=== PATIENT | female | born 1960 | race African-American/Black ===

== ENCOUNTER 2023-11-29 12:55 | Inpatient (IN) | payer MEDICAID, MEDICARE ==
[~2023-11-29] VITALS: Ht 167.6 cm; Wt 107.5 kg
[2023-11-29] VITALS (7 sets, daily range): BP systolic 140; BP diastolic 75; TEMP 99; O2SAT 95–100
[2023-11-29 13:22] LABS: ABG BASE EXCESS 4.1 mmol/L (-2.0-2.0); ABG OXYGEN SATURATION 48.8 % (92.0-98.5); ABG PCO2 47.5 mmHg (35.0-45.0); ABG PH 7.411 (7.350-7.450); ABG PO2 26.7 mmHg (75.0-100.0); ABG TOTAL HEMOGLOBIN 12.8 G/dL (12.0-16.0); COHb 0.3 % (0.5-1.5); MetHb 0.3 % (0.0-1.5); O2Hb 48.5 % (94.0-97.0); SITE, ABG Right Radial; VENT MODE, BG ROOM AIR
[2023-11-29 13:37] LABS: BASOPHILS % (AUTO) 0.4 % (0.0-2.0); CALCIUM, SERUM 9.1 mg/dL (8.5-10.1); CARBON DIOXIDE 33 mmol/L (21-32); CHLORIDE 102 mmol/L (98-107); CREATININE 1.1 mg/dL (0.6-1.3); EOSINOPHILS # (AUTO) 0.1 K/uL (0.0-0.7); EOSINOPHILS % (AUTO) 0.6 % (0.0-6.0); GLUCOSE 191 mg/dL (74-106); HEMATOCRIT 36 % (33-45); HEMOGLOBIN 11.5 g/dL (11.5-14.8); LYMPHOCYTES # (AUTO) 5.3 K/uL (0.8-4.8); MEAN CORPUSCULAR HEMOGLOBIN 25 PG (26.0-33.0); MEAN CORPUSCULAR HGB CONC 32 g/dl (31.0-36.0); MEAN CORPUSCULAR VOLUME 79 fL (82-100); MONOCYTES # (AUTO) 0.6 K/uL (0.1-1.30); MONOCYTES % (AUTO) 4.9 % (2.0-12.0); NEUTROPHILS # (AUTO) 5.6 K/uL (1.8-8.9); NEUTROPHILS % (AUTO) 48.1 % (43.0-81.0); PLATELET COUNT (AUTO) 253 K/uL (150-450); RED BLOOD CELL COUNT(AUTO) 4.57 MIL/uL (4.0-5.2); RED CELL DISTRIBUTION WIDTH 14.6 % (11.5-15.0); SODIUM SERUM 141 mmol/L (136-145); UREA NITROGEN, BLOOD 22 mg/dL (7-18); WHITE BLOOD COUNT (AUTO) 11.6 K/uL (4.3-11.0)
[2023-11-29 13:43] LABS: ALANINE AMINOTRANSFERASE 37 U/L (12-78); ALBUMIN 3.1 g/dL (3.4-5.0); ALKALINE PHOSPHATASE 64 U/L (46-116); ASPARTATE AMINOTRANSFERASE 11 U/L (15-37); BILIRUBIN,DIRECT 0.2 mg/dL (0.0-0.2); BILIRUBIN,TOTAL 0.6 mg/dL (0.2-1.0); TOTAL PROTEIN, SERUM 7.3 g/dL (6.4-8.2)
[2023-11-29 13:46] LABS: LACTIC ACID 2.3 mmol/L (0.4-2.0)
[2023-11-29] MEDS: CEFTRIAXONE 1GM BAG (ER ONLY) 50 ML IV ONE (15:15)
[2023-11-29] MEDS: methylPREDNISolone SOD SUCC 125 MG/2ML VIAL IV ONE (15:15)
[2023-11-29] MEDS: IV NS 0.9% 1,000 ML BAG IV ONE (15:15)
[2023-11-29] MEDS: IPRATROPIUM NEB FS 0.5 MG/2.5 ML AMPUL.NEB NEB ONE (15:22)
[2023-11-29] MEDS: ALBUTEROL FS 2.5 MG/3 ML VIAL.NEB NEB ONE (15:22)
[2023-11-29] MEDS: AZITHROMYCIN 500 MG in IV D5W 250 ML IV ONE (15:45)
[2023-11-29] MEDS: POTASSIUM CHLORIDE 20 MEQ TAB.PRT.SR PO ONE (17:10)
[2023-11-29] MEDS ORDERED: METF-441 PO (18:04)
[2023-11-29] MEDS ORDERED: GABA300C PO (18:04)
[2023-11-29] MEDS ORDERED: LISI10TA29 PO (18:04)
[2023-11-29] MEDS ORDERED: CYCL10TA9 PO (18:04)
[2023-11-29] MEDS ORDERED: ATOR40TA PO (18:04)
[2023-11-29] MEDS ORDERED: ESCI5TAB PO (18:04)
[2023-11-29] MEDS ORDERED: CHOL200059 PO (18:04)
[2023-11-29] MEDS ORDERED: SITA25TA PO (18:04)
[2023-11-29] MEDS ORDERED: IV NS 0.9% 1,000 ML IV PRN (18:30)
[2023-11-29] MEDS ORDERED: ONDANSETRON HCL/PF 4 MG/2 ML VIAL IVP PRN (18:30)
[2023-11-29] MEDS ORDERED: DEXTROSE 50%-WATER 50 ML DISP.SYRIN IV PRN (20:00)
[2023-11-29] MEDS: ENOXAPARIN SODIUM 40 MG/0.4 ML DISP.SYRIN SQ SCH (20:57)
[2023-11-29] MEDS ORDERED: IPRATROPIUM NEB FS 0.5 MG/2.5 ML AMPUL.NEB NEB PRN (21:00)
[2023-11-29] MEDS ORDERED: ALBUTEROL HALF STRENGTH 1.25 MG/3 ML VIAL.NEB NEB PRN (21:00)
[2023-11-29] MEDS: BLOOD SUGAR DIAGNOSTIC 1 EACH STRIP IN SCH (21:25)
[2023-11-29] MEDS: *INSULIN REGULAR(HUMULIN R)HUM 100 UNIT/ML VIAL SQ PRN (21:28)
[2023-11-29] MEDS: IPRATROPIUM NEB FS 0.5 MG/2.5 ML AMPUL.NEB NEB SCH (21:52)
[2023-11-29] MEDS: ALBUTEROL HALF STRENGTH 1.25 MG/3 ML VIAL.NEB NEB SCH (21:52)
[2023-11-29] MEDS: methylPREDNISolone SOD SUCC 40 MG/ML VIAL IV SCH (23:12)
[2023-11-30] VITALS (19 sets, daily range): BP systolic 131–154; BP diastolic 65–88; TEMP 97.3–98.1; O2SAT 96–99
[2023-11-30] MEDS: ACETAMINOPHEN 325 MG TABLET PO PRN (02:28)
[2023-11-30 06:43] LABS: BASOPHILS % (AUTO) 0.1 % (0.0-2.0); HEMATOCRIT 33 % (33-45); HEMOGLOBIN 10.7 g/dL (11.5-14.8); LYMPHOCYTES # (AUTO) 0.8 K/uL (0.8-4.8); LYMPHOCYTES % (AUTO) 6.6 % (20.0-44.0); MEAN CORPUSCULAR HEMOGLOBIN 25 PG (26.0-33.0); MEAN CORPUSCULAR HGB CONC 32 g/dl (31.0-36.0); MEAN CORPUSCULAR VOLUME 79 fL (82-100); MONOCYTES # (AUTO) 0.1 K/uL (0.1-1.30); NEUTROPHILS % (AUTO) 92.3 % (43.0-81.0); PLATELET COUNT (AUTO) 244 K/uL (150-450); RED BLOOD CELL COUNT(AUTO) 4.23 MIL/uL (4.0-5.2); RED CELL DISTRIBUTION WIDTH 14.6 % (11.5-15.0); WHITE BLOOD COUNT (AUTO) 11.9 K/uL (4.3-11.0)
[2023-11-30 06:49] LABS: POTASSIUM 4.8 mmol/L (3.5-5.1)
[2023-11-30 07:05] LABS: PHOSPHORUS 4.3 mg/dL (2.5-4.9)
[2023-11-30 07:21] LABS: CALCIUM, SERUM 9.4 mg/dL (8.5-10.1); CREATININE 0.8 mg/dL (0.6-1.3); MAGNESIUM 2.2 mg/dL (1.8-2.4)
[2023-11-30] MEDS: INSULIN REGULAR, HUMAN 100 UNIT/ML 3 ML VIAL SQ PRN (08:08)
[2023-11-30] MEDS ORDERED: CYCLOBENZAPRINE 10 MG TABLET PO PRN (10:00)
[2023-11-30] MEDS: CHOLECALCIFEROL 1,000 UNIT TABLET (VIT D3) PO SCH (10:11)
[2023-11-30] MEDS: METFORMIN 850 MG TABLET PO SCH (10:11)
[2023-11-30] MEDS: ESCITALOPRAM OXALATE (10 MG) 10 MG TABLET PO SCH (10:11)
[2023-11-30] MEDS: LISINOPRIL (10MG) 10 MG TABLET PO SCH (10:11)
[2023-11-30] MEDS: GABAPENTIN 300 MG CAPSULE PO PRN (10:11)
[2023-11-30] MEDS: CEFTRIAXONE 1 G in IV D5W 50 ML IV SCH (15:51)
[2023-11-30] MEDS: AZITHROMYCIN 500 MG in IV D5W 250 ML IV SCH (16:46)
[2023-11-30] MEDS: ATORVASTATIN 40 MG TABLET PO SCH (21:19)
[2023-12-01] VITALS (12 sets, daily range): BP systolic 123–148; BP diastolic 61–86; TEMP 97.8–98.4; O2SAT 95–99
[2023-12-01 07:07] LABS: BASOPHILS % (AUTO) 0.1 % (0.0-2.0); HEMATOCRIT 33 % (33-45); HEMOGLOBIN 10.6 g/dL (11.5-14.8); LYMPHOCYTES # (AUTO) 0.7 K/uL (0.8-4.8); LYMPHOCYTES % (AUTO) 4.4 % (20.0-44.0); MEAN CORPUSCULAR HEMOGLOBIN 25 PG (26.0-33.0); MEAN CORPUSCULAR HGB CONC 32 g/dl (31.0-36.0); MEAN CORPUSCULAR VOLUME 78 fL (82-100); MONOCYTES # (AUTO) 0.4 K/uL (0.1-1.30); MONOCYTES % (AUTO) 2.4 % (2.0-12.0); NEUTROPHILS # (AUTO) 14.4 K/uL (1.8-8.9); NEUTROPHILS % (AUTO) 93.1 % (43.0-81.0); PLATELET COUNT (AUTO) 248 K/uL (150-450); RED BLOOD CELL COUNT(AUTO) 4.23 MIL/uL (4.0-5.2); RED CELL DISTRIBUTION WIDTH 14.4 % (11.5-15.0); WHITE BLOOD COUNT (AUTO) 15.5 K/uL (4.3-11.0)
[2023-12-01 07:22] LABS: CALCIUM, SERUM 8.8 mg/dL (8.5-10.1); CREATININE 0.7 mg/dL (0.6-1.3); MAGNESIUM 1.9 mg/dL (1.8-2.4); PHOSPHORUS 4.1 mg/dL (2.5-4.9); POTASSIUM 4.9 mmol/L (3.5-5.1)
[2023-12-01] MEDS: LINAGLIPTIN 5 MG TABLET PO SCH (08:41)
[2023-12-01] MEDS ORDERED: ALBU1.257 NEB (14:11)
[2023-12-01] MEDS ORDERED: PRED20TA PO (14:11)
[2023-12-01] MEDS ORDERED: PRED50TA PO (14:11)
[2023-12-01] MEDS ORDERED: ALBUTEROL HALF STRENGTH 1.25 MG/3 ML VIAL.NEB NEB PRN (14:15)
== END 2023-12-01 16:49 | disposition home or self-care (01) | DRG 141 ==
LOC: ER 13:04 → TELE1 18:36
PROVIDERS: ADMIT Nurse Practitioner Acute Care; ATTEND Nurse Practitioner Acute Care
DX: J45.901 Unspecified asthma with (acute) exacerbation (principal); J96.01 Acute respiratory failure with hypoxia; D68.59 Other primary thrombophilia; E87.6 Hypokalemia; Z20.822 Contact with and (suspected) exposure to COVID-19; M19.90 Unspecified osteoarthritis, unspecified site; F41.9 Anxiety disorder, unspecified; Z82.49 Family history of ischemic heart disease and other diseases of the circulatory system; Z82.5 Family history of asthma and other chronic lower respiratory diseases; Z83.3 Family history of diabetes mellitus; Z98.890 Other specified postprocedural states; Z98.84 Bariatric surgery status; Z91.018 Allergy to other foods; E66.9 Obesity, unspecified; E87.20 Acidosis, unspecified; T38.0X5A Adverse effect of glucocorticoids and synthetic analogues, initial encounter; Y92.9 Unspecified place or not applicable; Z68.38 Body mass index [BMI] 38.0-38.9, adult; Z79.84 Long term (current) use of oral hypoglycemic drugs; Z79.899 Other long term (current) drug therapy
CPT/HCPCS: 36415; 36600; 71045-TC; 80048-TC; 80076-TC; 82803-TC; 82962-TC; 83605-TC; 83735-TC; 84100-TC; 84484-TC; 85025-TC; 87040-TC; 94799-TC; A4223; G0378; J0456; J0696; J1650; J1815; J2919; J7030; J7050; J7060